=== PATIENT | female | born 1980 | race Asian ===

== ENCOUNTER 2017-12-21 22:09 | Emergency (ER) | payer SELFPAY ==
[~2017-12-21] VITALS: Ht 160 cm; Wt 55.0 kg
[2017-12-21 22:29] VITALS: Ht 160 cm; Wt 55.0 kg
[2017-12-22 00:52] VITALS: BP 114/72
== END 2017-12-22 01:03 | disposition left against medical advice (07) ==
LOC: ED 22:09
DX: Z53.21 Procedure and treatment not carried out due to patient leaving prior to being seen by health care provider (principal)